=== PATIENT | female | born 1990 | race Caucasian/White ===

== ENCOUNTER 2025-01-28 05:52 | Day surgery (SDC) | payer OTHER ==
[2025-01-27 10:41] LABS: URINE APPEARANCE Clear; URINE BILIRRUBIN Negative (NEGATIVE); URINE BLOOD Negative; URINE COLOR Yellow; URINE GLUCOSE Negative (NEGATIVE); URINE KETONE Negative (NEGATIVE); URINE LEUKOCYTE Negative; URINE NITRATE Negative; URINE PROTEIN Negative (NEGATIVE); URINE UROBILINOGEN 0.2 E.U./dl
[2025-01-27 10:45] LABS: URINE BACTERIA 35.9 uL (0.0-1933); URINE RBC 3.0 uL (0.0-20.8); URINE WBC 3.5 uL (0.0-23.2)
[2025-01-27 10:48] LABS: BASO % 0.3 % (0.1-1.2); EOS # 0.12 (0.04-0.54); EOS % 3.4 % (0.7-7.0); LYMPH # 1.60 (1.18-3.74); LYMPH % 45.7 % (19.3-53.1); MEAN PLATELET VOLUME 8.90 fl (9.4-12.4); MONO # 0.27 (0.24-0.82); MONO % 7.7 % (4.7-12.5); NEUT # 1.49 (1.56-6.13); NEUT % 42.6 % (34.0-71.1); RED CELL DISTRIBUTION WIDTH 13.1 % (11.6-14.4)
[2025-01-27 10:50] LABS: URINE CAST 0.00 uL (0.0-1.40); URINE EPITHELIAL CELLS 1.2 uL (0.0-38.8)
[2025-01-27 11:11] LABS: ALT/SGPT 40.0 U/L (12-78); AST/SGOT 74.0 U/L (15-37); BILIRUBIN TOTAL 0.83 mg/dL (0.3-1.2); BUN CREA RATIO 17.0 (7.0-25.0); CREATININE SERUM 0.71 mg/dL (0.55-1.02); GFR 94.23; GLOBULINA 3.0 G/DL (2.4-3.5); GLUCOSE FASTING 53.0 mg/dL (65-100); OSMOLALITY SERUM 280.0 MOSM/KG (275-295)
[2025-01-27 11:33] LABS: INR 0.98
[~2025-01-28 05:52] MED LIST: LEVOTHYROXINE25 MCG
[2025-01-28] MEDS ORDERED: POVIDONE-IODINE 118 ML BOTT TOP ONE (11:30)
[2025-01-28] MEDS ORDERED: WATER IV ONE (11:30)
[2025-01-28] MEDS ORDERED: DEXTROSE 5% IV ONE (11:30)
[2025-01-28] MEDS ORDERED: CEFOXITIN SODIUM 2,000 MG VIAL IV ONE (11:30)
== END 2025-01-28 15:35 | disposition home or self-care (01) ==
LOC: CIR.AMB 05:52
PROVIDERS: ATTEND Obstetrics & Gynecology Gynecology
DX: O02.1 Missed abortion (principal)